=== PATIENT | male | born 1995 | race Two or more races ===

== ENCOUNTER 2024-10-30 13:35 | Outpatient (AMB) | payer MEDICAID, SELFPAY ==
[2024-10-23 10:22] VITALS: BP 124/81; PULSE 73; RESP 17; TEMP 36.5; O2SAT 99; BMI 27.6
--- NOTE | 2024-11-06 10:21 | ACNOTE_ITS ---
Vital Signs 10/23/24 10:22 Height 1.72 m Height Method Stated Weight 81.817 kg Weight Measurement Method Standing Scale BMI 27.6 BP 124/81 Blood Pressure Source Automatic Cuff Blood Pressure Location Left Upper Arm Position Sitting Respiration 17 Pulse 73 Pulse Source Monitor Temp 97.7 F Temp Source Oral Pulse Oximetry (%) 99 Oxygen Delivery Method Room Air Allergies/Meds Allergies & Medications Allergies No Known Allergies Allergy (Verified 11/06/24 10:23) Medication Reconciliation podofilox 0.5 % topical gel 1 applic topical BID 3 days #3.5 grams 03/18/24 [Rx Confirmed 11/06/24] allantoin 0.2 % topical cream 1 applic topical TID PRN dry skin #56.7 grams 07/17/24 [Rx Confirmed 11/06/24] bictegravir 50 mg-emtricitabine 200 mg-tenofovir alafenam 25 mg tablet (Biktarvy) 1 tab PO QDAY 30 days #30 tabs 10/30/24 [Rx Confirmed 11/06/24] emtricitabine 200 mg-tenofovir disoproxil fumarate 300 mg tablet (Truvada) 1 tab PO QDAY #30 tabs 10/30/24 [Rx Confirmed 11/06/24] MA Intake Visit Data Collection New Patient or Established: Established Patient (seen at [facility] within 3 years) Seen by Clinical Staff ONLY (RN/MA): No Pain Present Currently: No Pain scale:: 0 Pain Scale Used: Keane-Aguilar/Numerical Blow Down Helper Required: No PCP or OBGYN visit in last 3 months: Yes Hx Now: No Do You Feel Safe at Home: Yes Authorities Contacted: N/A Smoking Status Smoking Status: Never smoker Immunization / Flu Flu Vaccine in the Last 12 Months: No Flu Vaccine Exclusion Criteria: No Exclusion Criteria Past Medical History Past Medical History OTHER HISTORY: Positive Shingles and Human Immunodeficiency Virus (HIV) Social History SMOKING STATUS: Smoking status: Never smoker Patient Portal Questionaires Social History Tobacco History Smoking Status: Never smoker Domestic Abuse History Do You Feel Safe at Home: Yes Review of Systems Report any current symptoms Only answer those that you have currently: Past Medical History Past Medical History Have you ever been diagnosed with any of the following: Other Problems Shingles: Yes Human Immunodeficiency Virus (HIV): Yes History of Present Illness HPI Narrative Patient presented for follow-up for HIV therapy. Patient is feels well. His mobility has been stable and improving. Denies any fevers or weight changes. Continues to endorse safe sex practices. Objective/Exam Narrative Physical exam: Constitutional: AOx3, able to speak full sentences HEENT: NC/AT, PERRLA, oral mucosa moist, neck supple CVS: RRR, S1-S2 present, no murmurs RESP: CTAB GI: non distended, non tender to palpation, NBS MSK: full ROM, no peripheral edema, peripheral pulses present Skin: warm and dry, no rashes Neuro: geomagnetist II-XII grossly intact. Sensation grossly intact. Assessment & Plan Diagnosis / Problem List (1) HIV (human immunodeficiency virus infection): Status: Acute Qualifiers: HIV symptom status: asymptomatic, with no history of HIV-related illness Qualified Code(s): Z21 - Asymptomatic human immunodeficiency virus [HIV] infection status Assessment & Plan: HIV RNA (05/07/2024): <20 Plan: -continue Biktarvy -f/u 3 months with cd4 count, lipid panel Office Procedures [facility] Level of Care Nursing/Assessment Patient Status: Established Patient Nursing Assessment/Reassessment: Medication Reconciliation, Update PMH in EMR and Vital Signs Coordination of Care: Complex Care and Chronic Disease 1-5, Consent,records obtained, informed consent, Education Simp Pt/Fam, Lab and Imaging orders and Staff clarify orders Established Patient Charge Established Patient Point Assignment: 100 Established Patient Point Charge: EP Level 3 (80-115)
== END 2024-10-30 15:04 | disposition home or self-care (01) ==
LOC: HODAHC 13:35
PROVIDERS: PCP Student in an Organized Health Care Education/Training Program; Referring Provider Student in an Organized Health Care Education/Training Program; Supervising Provider Internal Medicine; Visit Provider Student in an Organized Health Care Education/Training Program
DX: Z21 Asymptomatic human immunodeficiency virus [HIV] infection status (principal); Z79.899 Other long term (current) drug therapy; G72.89 Other specified myopathies
CPT/HCPCS: 99213; G0463

== ENCOUNTER 2025-01-29 13:33 | Outpatient (AMB) | payer MEDICAID, SELFPAY ==
[2025-01-29 13:39] VITALS: BP 114/70; PULSE 56; RESP 18; TEMP 36.1; O2SAT 98; BMI 24.5
--- NOTE | 2025-01-29 13:39 | ACNOTE_ITS ---
Vital Signs 01/29/25 13:39 Height 1.72 m Height Method Stated Weight 72.802 kg Weight Measurement Method Standing Scale BMI 24.5 BP 114/70 Blood Pressure Source Automatic Cuff Blood Pressure Location Left Upper Arm Position Sitting Respiration 18 Pulse 56 L Pulse Source Monitor Temp 97.0 F Temp Source Temporal Artery Scan Pulse Oximetry (%) 98 Oxygen Delivery Method Room Air Allergies/Meds Allergies & Medications Allergies No Known Allergies Allergy (Verified 02/18/25 15:12) Medication Reconciliation podofilox 0.5 % topical gel 1 applic topical BID 3 days #3.5 grams 03/18/24 [Rx Confirmed 02/18/25] allantoin 0.2 % topical cream 1 applic topical TID PRN dry skin #56.7 grams 07/17/24 [Rx Confirmed 02/18/25] loperamide 2 mg capsule 2 mg PO Q6H PRN loose stool #20 caps 01/29/25 [Rx Confirmed 02/18/25] atorvastatin 20 mg tablet 20 mg PO QDAY #30 tabs 02/18/25 [Rx Confirmed 02/18/25] bictegravir 50 mg-emtricitabine 200 mg-tenofovir alafenam 25 mg tablet (Biktarvy) 1 tab PO QDAY 30 days #30 tabs 02/18/25 [Rx Confirmed 02/18/25] emtricitabine 200 mg-tenofovir disoproxil fumarate 300 mg tablet (Truvada) 1 tab PO QDAY #30 tabs 02/18/25 [Rx Confirmed 02/18/25] MA Intake Visit Data Collection New Patient or Established: Established Patient (seen at [facility] within 3 years) Seen by Clinical Staff ONLY (RN/MA): No Pain Present Currently: No Pain scale:: 0 Pain Scale Used: Keane-Aguilar/Numerical Etl Bi Developer Required: No PCP or OBGYN visit in last 3 months: No Hx Now: No Do You Feel Safe at Home: Yes Authorities Contacted: N/A Smoking Status Smoking Status: Never smoker Immunization / Flu Flu Vaccine in the Last 12 Months: No Flu Vaccine Exclusion Criteria: No Exclusion Criteria Past Medical History Past Medical History OTHER HISTORY: Positive Shingles and Human Immunodeficiency Virus (HIV) Social History SMOKING STATUS: Smoking status: Never smoker Patient Portal Questionaires Social History Tobacco History Smoking Status: Never smoker Domestic Abuse History Do You Feel Safe at Home: Yes Review of Systems Report any current symptoms Only answer those that you have currently: Past Medical History Past Medical History Have you ever been diagnosed with any of the following: Other Problems Shingles: Yes Human Immunodeficiency Virus (HIV): Yes History of Present Illness HPI Narrative Patient presented for follow-up for HIV therapy. Patient is feels well. His mobility has been stable and improving. Denies any fevers or weight changes. Continues to endorse safe sex practices. 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 Sensation grossly intact. Assessment & Plan Diagnosis / Problem List (1) HIV (human immunodeficiency virus infection): Status: Acute Qualifiers: HIV symptom status: asymptomatic, with no history of HIV-related illness Qualified Code(s): Z21 - Asymptomatic human immunodeficiency virus [HIV] infection status Assessment & Plan: HIV RNA (05/07/2024): <20 Plan: -continue Biktarvy -f/u with cd4 count, lipid panel Office Procedures [facility] Level of Care Nursing/Assessment Patient Status: Established Patient Nursing Assessment/Reassessment: Medication Reconciliation, Update PMH in EMR and Vital Signs Coordination of Care: Complex Care and Chronic Disease 1-5, Consent,records obtained, informed consent, Lab and Imaging orders and Staff clarify orders Established Patient Charge Established Patient Point Assignment: 85 Established Patient Point Charge: EP Level 3 (80-115)
== END 2025-01-29 13:59 | disposition home or self-care (01) ==
LOC: HODAHC 13:33
PROVIDERS: PCP Student in an Organized Health Care Education/Training Program; Referring Provider Student in an Organized Health Care Education/Training Program; Supervising Provider Internal Medicine; Visit Provider Student in an Organized Health Care Education/Training Program
DX: Z21 Asymptomatic human immunodeficiency virus [HIV] infection status (principal); Z79.899 Other long term (current) drug therapy
CPT/HCPCS: 99213; G0463

== ENCOUNTER 2025-02-18 13:44 | Outpatient (AMB) | payer MEDICAID, SELFPAY ==
[2025-02-18 14:36] VITALS: BP 117/67; PULSE 73; RESP 18; TEMP 36.6; O2SAT 96; BMI 25.0
--- NOTE | 2025-02-18 14:36 | PD.RESCLINIC ---
Vital Signs 02/18/25 14:36 Height 1.72 m Height Method Stated Weight 74.049 kg Weight Measurement Method Standing Scale BMI 25.0 BP 117/67 Blood Pressure Source Automatic Cuff Blood Pressure Location Right Upper Arm Position Sitting Respiration 18 Pulse 73 Pulse Source Monitor Temp 97.8 F Temp Source Temporal Artery Scan Pulse Oximetry (%) 96 Oxygen Delivery Method Room Air Allergies/Meds Allergies & Medications Allergies No Known Allergies Allergy (Verified 02/18/25 15:12) Medication Reconciliation podofilox 0.5 % topical gel 1 applic topical BID 3 days #3.5 grams 03/18/24 [Rx Confirmed 02/18/25] allantoin 0.2 % topical cream 1 applic topical TID PRN dry skin #56.7 grams 07/17/24 [Rx Confirmed 02/18/25] loperamide 2 mg capsule 2 mg PO Q6H PRN loose stool #20 caps 01/29/25 [Rx Confirmed 02/18/25] atorvastatin 20 mg tablet 20 mg PO QDAY #30 tabs 02/18/25 [Rx Confirmed 02/18/25] bictegravir 50 mg-emtricitabine 200 mg-tenofovir alafenam 25 mg tablet (Biktarvy) 1 tab PO QDAY 30 days #30 tabs 02/18/25 [Rx Confirmed 02/18/25] emtricitabine 200 mg-tenofovir disoproxil fumarate 300 mg tablet (Truvada) 1 tab PO QDAY #30 tabs 02/18/25 [Rx Confirmed 02/18/25] MA Intake Visit Data Collection New Patient or Established: Established Patient (seen at [facility] within 3 years) Seen by Clinical Staff ONLY (RN/MA): No Pain Present Currently: No Pain scale:: 0 Pain Scale Used: Keane-Aguilar/Numerical Machinery Mechanic Required: No PCP or OBGYN visit in last 3 months: No Hx Now: No Do You Feel Safe at Home: Yes Authorities Contacted: N/A Smoking Status Smoking Status: Never smoker Immunization / Flu Flu Vaccine in the Last 12 Months: No Flu Vaccine Exclusion Criteria: No Exclusion Criteria Past Medical History Past Medical History OTHER HISTORY: Positive Shingles and Human Immunodeficiency Virus (HIV) Social History SMOKING STATUS: Smoking status: Never smoker Patient Portal Questionaires Social History Tobacco History Smoking Status: Never smoker Domestic Abuse History Do You Feel Safe at Home: Yes Review of Systems Report any current symptoms Only answer those that you have currently: Past Medical History Past Medical History Have you ever been diagnosed with any of the following: Other Problems Shingles: Yes Human Immunodeficiency Virus (HIV): Yes History of Present Illness HPI Narrative Patient is here for labs f/u. Patient is feeling well, denies any acute symptoms. 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 Sensation grossly intact. Assessment & Plan Diagnosis / Problem List (1) HIV (human immunodeficiency virus infection): Status: Acute Qualifiers: HIV symptom status: asymptomatic, with no history of HIV-related illness Qualified Code(s): Z21 - Asymptomatic human immunodeficiency virus [HIV] infection status Assessment & Plan: HIV RNA (01/2025): <30 Plan: -continue Biktarvy -f/u with cd4 count, lipid panel in 3 months Office Procedures [facility] Level of Care Nursing/Assessment Patient Status: Established Patient Nursing Assessment/Reassessment: Medication Reconciliation, Update PMH in EMR and Vital Signs Coordination of Care: Complex Care and Chronic Disease 1-5, Consent,records obtained, informed consent, Education Simp Pt/Fam and Staff clarify orders Established Patient Charge Established Patient Point Assignment: 85 Established Patient Point Charge: EP Level 3 (80-115)
== END 2025-02-18 14:35 | disposition home or self-care (01) ==
LOC: HODAHC 13:44
PROVIDERS: Supervising Provider Internal Medicine; Visit Provider Student in an Organized Health Care Education/Training Program
DX: Z21 Asymptomatic human immunodeficiency virus [HIV] infection status (principal); Z79.899 Other long term (current) drug therapy; Z71.2 Person consulting for explanation of examination or test findings
CPT/HCPCS: 99213; G0463

== ENCOUNTER 2025-07-02 13:04 | Outpatient (AMB) | payer MEDICAID, SELFPAY ==
[2025-07-02 13:23] VITALS: BP 125/76; PULSE 63; RESP 18; TEMP 36.6; O2SAT 98; BMI 25.7
--- NOTE | 2025-07-02 13:23 | ACNOTE_ITS ---
<Statement entered by Henry Goodwin MD - 07/07/25 14:38> Attending note: I, Henry Goodwin MD, attest that I was physically present for the lee portions of the service and evaluated the patient with the resident and I reviewed and discussed the case with the resident and agree with the resident's findings and plans of care as documented above. Vital Signs 07/02/25 13:23 Height 1.72 m Height Method Stated Weight 76.317 kg Weight Measurement Method Standing Scale BMI 25.7 BP 125/76 Blood Pressure Source Automatic Cuff Blood Pressure Location Right Upper Arm Position Sitting Respiration 18 Pulse 63 Pulse Source Monitor Temp 97.9 F Temp Source Oral Pulse Oximetry (%) 98 Oxygen Delivery Method Room Air Allergies/Meds Allergies & Medications Allergies No Known Allergies Allergy (Verified 07/02/25 13:24) Medication Reconciliation podofilox 0.5 % topical gel 1 applic topical BID 3 days #3.5 grams 03/18/24 [Rx Confirmed 07/02/25] allantoin 0.2 % topical cream 1 applic topical TID PRN dry skin #56.7 grams 07/17/24 [Rx Confirmed 07/02/25] loperamide 2 mg capsule 2 mg PO Q6H PRN loose stool #20 caps 01/29/25 [Rx Confirmed 07/02/25] atorvastatin 20 mg tablet 20 mg PO QDAY #30 tabs 02/18/25 [Rx Confirmed 07/02/25] bictegravir 50 mg-emtricitabine 200 mg-tenofovir alafenam 25 mg tablet (Biktarvy) 1 tab PO QDAY 30 days #30 tabs 02/18/25 [Rx Confirmed 07/02/25] emtricitabine 200 mg-tenofovir disoproxil fumarate 300 mg tablet (Truvada) 1 tab PO QDAY #30 tabs 02/18/25 [Rx Confirmed 07/02/25] hydrocortisone 1 % topical ointment (Anti-Itch (hydrocortisone)) 1 applic topical BID PRN rash #28.35 grams 07/02/25 [Rx] MA Intake Visit Data Collection New Patient or Established: Established Patient (seen at [facility] within 3 years) Seen by Clinical Staff ONLY (RN/MA): No Pain Present Currently: No Pain scale:: 0 PCP or OBGYN visit in last 3 months: Yes Smoking Status Smoking Status: Never smoker Immunization / Flu Flu Vaccine in the Last 12 Months: No Flu Vaccine Exclusion Criteria: No Exclusion Criteria Past Medical History Past Medical History OTHER HISTORY: Positive Shingles and Human Immunodeficiency Virus (HIV) Social History SMOKING STATUS: Smoking status: Never smoker Patient Portal Questionaires Social History Tobacco History Smoking Status: Never smoker Review of Systems Report any current symptoms Only answer those that you have currently: Past Medical History Past Medical History Have you ever been diagnosed with any of the following: Other Problems Shingles: Yes Human Immunodeficiency Virus (HIV): Yes History of Present Illness HPI Narrative Patient is here for follow-up with labs, currently on HIV treatment with Biktarvy. Reported no acute symptoms. Used certified development architect Tad [id number] and Janiya [id number] for this encounter. Labs were reviewed, showed HIV RNA undetectable on PCR, CBC unremarkable, CD4 count absolute 466, lymphocytes 1800, normal electrolytes and renal panel, did notice slight elevation of alkaline phosphatase and T bilirubin, normal AST and AST, lipid panel shows elevated triglycerides and LDL. Patient did report a rash as he got in contact with poison charlette when working in the [employer] over a week ago, rash is present on right upper extremity, which is now receding, noticed slight itching. Patient was also concerned about keloid scars that he has on the left upper extremity and left shoulder. Patient was provided counseling regarding the benign nature of keloids. Also provided counseling to the patient as he was given multivitamin supplements for gym, advised the patient to keep at least 6-hour interval between multivitamin supplements and Biktarvy. Also advised the patient to focus more on fresh fruits and salads for nutritional supplementation and avoid [id number] creatinine or multivitamin supplements if possible as supplements can sometimes interfere with medication reabsorption. If taken simultaneously.. Patient demonstrated understanding. Will follow-up the patient with labs in 2 months. Review of Systems Review of Systems Narrative Review of Systems: General: Denies fevers or chills HEENT: Denies congestion or sore throat Heart: Denies chest pain or palpitations Lungs: Denies shortness of breath or cough Abdomen: Denies diarrhea, nausea, vomiting, constipation, bright red blood per rectum or melena Genitourinary: Denies frequency, urgency, dysuria, or hematuria Musculoskeletal: Denies joint pain, denies muscular pain Neurology: Denies any numbness, tingling Review of systems otherwise negative except what is mentioned above. Objective/Exam Narrative Physical exam: Constitutional: AOx3, able to speak full sentences HEENT: NC/AT, PERRLA, oral mucosa moist, neck supple CVS: RRR, S1-S2 present, no murmurs RESP: CTAB GI: non distended, non tender to palpation, NBS MSK: full ROM, no peripheral edema, peripheral pulses present Skin: warm and dry, urticarial rash right upper extremity. Noted keloids left upper extremity and tattoos left upper extremity along with left shoulder. 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 Sensation grossly intact. Assessment & Plan Diagnosis / Problem List (1) HIV (human immunodeficiency virus infection): Status: Acute Qualifiers: HIV symptom status: asymptomatic, with no history of HIV-related illness Qualified Code(s): Z21 - Asymptomatic human immunodeficiency virus [HIV] infection status Assessment & Plan: HIV RNA (01/2025): <30 Plan: -continue Biktarvy -f/u with cd4 count, lipid panel in 3 months (2) Rash: Status: Acute Assessment & Plan: After contact with poison charlette over 1 week ago, type IV hypersensitivity reaction. Rash is now receding, slight discomfort and itchiness. Plan: ? 1% Hydrocortisone topical cream to be used twice daily as needed (3) Hyperlipidemia: Status: Acute Assessment & Plan: LDL 113, triglyceride 203, HDL 35 Plan: ? Patient agreed to continue with dietary and lifestyle modifications. (4) Elevated liver enzymes: Status: Acute Assessment & Plan: Noted elevated T. billirubin 1.1 and alkaline Phosphatase 189. Normal ALT and AST. Patient reported no abdominal pain or tenderness, right upper quadrant physical exam unremarkable. Possible medication induced hyperbilirubinemia. Plan: ? Follow-up liver panel in 2 months. ? If patient has right upper quadrant pain, will consider further imaging. Plan Plan of care discussed with Dr. Buddy MD Quresh PGY3 Office Procedures [facility] Level of Care Nursing/Assessment Patient Status: Established Patient Nursing Assessment/Reassessment: Medication Reconciliation, Update PMH in EMR a nd Vital Signs Coordination of Care: Complex Care and Chronic Disease 1-5, Education Complex Pt/Fam and Staff clarify orders Established Patient Charge Established Patient Point Assignment: 85 Established Patient Point Charge: Level 3 (80-115)
== END 2025-07-02 13:57 | disposition home or self-care (01) ==
LOC: HODAHC 13:04
PROVIDERS: Supervising Provider Internal Medicine; Visit Provider Student in an Organized Health Care Education/Training Program
DX: L23.7 Allergic contact dermatitis due to plants, except food (principal); Z21 Asymptomatic human immunodeficiency virus [HIV] infection status; Z79.899 Other long term (current) drug therapy; E78.5 Hyperlipidemia, unspecified; R74.8 Abnormal levels of other serum enzymes
CPT/HCPCS: 99213; G0463

== ENCOUNTER 2025-07-05 12:19 | Emergency (ER) | payer MEDICAID, SELFPAY ==
[2025-07-05 12:20] VITALS: BMI 24.0
[2025-07-05 12:56] VITALS: BP 121/69; PULSE 66; RESP 18; TEMP 37.6; O2SAT 98
[2025-07-05] MEDS: DiphenhydrAMINE ELIX 25 MG/10 ML UDC PO (13:11)
[2025-07-05] MEDS: DEXAMETHASONE SOD PHOS INJ 10 MG/ML VIAL PO (13:11)
[2025-07-05] MEDS: FAMOTIDINE 20 MG TABLET PO (13:12)
--- NOTE | 2025-07-05 14:18 | PD.EDSKIN ---
ED Skin Abcess FB-RME/HPI General Chief complaint: Skin/Abscess/Foreign Body Stated complaint: RASH TO MEÑO ARMS Time Seen by Provider: 07/05/25 12:31 Source: patient Arrival date/time: 07/05/25 12:19 Mode of arrival: ambulatory Limitations: no limitations Related Data Previous Rx's ?Medication ?Instructions ?Recorded podofilox 0.5 % topical gel 1 applic topical BID 3 days #3.5 03/18/24 grams allantoin 0.2 % topical cream 1 applic topical TID PRN dry skin 07/17/24 #56.7 grams loperamide 2 mg capsule 2 mg PO Q6H PRN loose stool #20 01/29/25 caps atorvastatin 20 mg tablet 20 mg PO QDAY #30 tabs 02/18/25 bictegravir 50 mg-emtricitabine 1 tab PO QDAY 30 days #30 tabs 02/18/25 200 mg-tenofovir alafenam 25 mg tablet (Biktarvy) emtricitabine 200 mg-tenofovir 1 tab PO QDAY #30 tabs 02/18/25 disoproxil fumarate 300 mg tablet (Truvada) hydrocortisone 1 % topical 1 applic topical BID PRN rash 07/02/25 ointment (Anti-Itch #28.35 grams (hydrocortisone)) diphenhydramine HCl 25 mg capsule 25 mg PO TID PRN allergic reaction 07/05/25 #14 caps prednisone 20 mg tablet 40 mg (2 x 20 mg) PO QDAY 4 days 07/05/25 #8 tabs Allergies Allergy/AdvReac Type Severity Reaction Status Date / Time No Known Allergies Allergy Verified 07/05/25 12:22 Review of Systems Review of Systems Systems Reviewed: All systems reviewed, normal except as documented Constitutional Constitutional: Reports system reviewed and no additional complaints, except as documented, Denies fatigue, Denies fever(s), Denies headache(s) and Denies weakness Eyes Eyes: Reports system reviewed and no additional complaints, except as documented, Denies blurry vision, Denies change in vision and Denies itchy eyes ENT Ears, Nose, Mouth, and Throat: Reports system reviewed and no additional complaints, except as documented, Denies otalgia, Denies headache(s), Denies lip swelling, Denies nasal congestion, Denies throat swelling, Denies tongue swelling and Denies vertigo Cardiovascular Cardiovascular: Reports system reviewed and no additional complaints, except as documented, Denies chest pain, Denies dyspnea and Denies dyspnea on exertion Respiratory Respiratory: Reports system reviewed and no additional complaints, except as documented, Denies chest congestion, Denies cough, Denies dyspnea, Denies dyspnea on exertion and Denies wheezing Gastrointestinal Gastrointestinal: Reports system reviewed and no additional complaints, except as documented, Denies abdominal pain, Denies cramping, Denies nausea and Denies vomiting Genitourinary Genitourinary: Reports system reviewed and no additional complaints, except as documented, Denies dysuria and Denies hematuria Musculoskeletal Musculoskeletal: Reports system reviewed and no additional complaints, except as documented and Denies back pain Integumentary/Breasts Skin/Breast: Reports system reviewed and no additional complaints, except as documented and Denies wounds Neurologic Neurologic: Reports system reviewed and no additional complaints, except as documented, Denies confusion, Denies headache(s), Denies lack of coordination, Denies vertigo and Denies weakness Psychiatric Psychiatric: Reports system reviewed and no additional complaints, except as documented, Denies anxiety, Denies confusion, Denies depression, Denies paranoia, Denies suicidal ideation and Denies tactile hallucinations Endocrine Endocrine: Reports system reviewed and no additional complaints, except as documented and Denies fatigue Hematologic/Lymphatic Hematologic/Lymphatic: Reports system reviewed and no additional complaints, except as documented and Denies lymphadenopathy Allergic/Immunologic Allergic/Immunologic: Reports system reviewed and no additional complaints, except as documented, Denies GI upset with certain foods, Denies itchy eyes, Denies lip swelling, Denies seasonal rhinorrhea, Denies throat swelling, Denies tongue swelling, Reports urticaria and Denies wheezing ED Exam General Limitations: Present no limitations General appearance: Present alert and in no apparent distress Head Head exam: Present atraumatic Eye Eye exam: Present normal appearance, PERRL and EOMI ENT ENT exam: Present normal exam, normal oropharynx and mucous membranes moist Neck Neck exam: Present normal inspection, full ROM and trachea midline Chest Chest inspection: Present normal inspection and symmetric chest wall rise Respiratory Respiratory exam: Present normal lung sounds bilaterally Cardiovascular Cardiovascular exam: Present regular rate, normal rhythm and normal heart sounds Abdominal Exam Abdominal exam: Present soft and normal bowel sounds Extremities Exam Extremities exam: Present normal inspection and full ROM Back Exam Back exam: Present normal inspection and full ROM Neurological Exam Neurological exam: Present alert, oriented X3 and CN II-XII intact Psychiatric Psychiatric exam: Present normal affect and normal mood Skin Skin exam: Present warm, dry, intact and normal color Expanded Skin Exam Type of lesion: Present rash Description: Present tenderness and erythematous Course Quality Measures none Orders Category Date Time Status Dexamethasone Inj [Decadron Inj] Med 07/05/25 12:58 Discontinued 10 mg PO X1 ONE DiphenhydrAMINE [Benadryl] Med 07/05/25 12:58 Discontinued 25 mg PO X1 ONE Famotidine [Pepcid] Med 07/05/25 12:58 Discontinued 20 mg PO X1 ONE Vital Signs Vital signs: Vital Signs Temperature 99.7 F 07/05/25 12:56 Pulse Rate 66 07/05/25 12:56 Respiratory Rate 18 07/05/25 12:56 Blood Pressure 121/69 07/05/25 12:56 Pulse Oximetry (%) 98 07/05/25 12:56 Oxygen Delivery Method Room Air 07/05/25 12:56 Skin / Abscess / Foreign Body MDM Narrative MDM Narrative:: 29-year-old male with a history of HIV presents to the emergency room with a chief complaint of a rash to the bilateral arms x 5 days. Patient is hemodynamically stable and in no apparent distress Physical examination shows a bilateral rash to the arms. It is just hives. The patient denies any respiratory distress there is no tongue swelling lip swelling. Lung sounds are clear bilaterally Antihistamines were given with significant improvement to the patient's symptoms Patient was discharged and educated to follow-up with primary care provider in the next 24 to 48 hours and return to the emergency room for any evidence of worsening signs or symptoms Patient data External records reviewed:: [facility] previous records Clinical information provided by:: patient Social determinants that could affect healthcare access:: none Patient has the following chronic illnesses:: No chronic illness How is presenting disease/condition affected by chronic disease/condition?: no chronic disease Evaluation data The following diagnostics were reviewed and interpreted by me:: lab results and radiology exam(s) Lab and/or radiology exams considered but not ordered:: Labs and radiology exams considered and ordered Interpretation Summary: N/A Medications / Prescriptions Medications or Prescriptions considered but not ordered:: Medication given Medication administrations:: Medication Administration History Discontinued Medications Dexamethasone Sodium Phosphate (Dexamethasone Sod Phos Inj 10 Mg/Ml Vial) 10 mg PO X1 ONE Stop: 07/05/25 12:59 Last Admin: 07/05/25 13:11 Dose: 10 mg Documented By: DILAN Diphenhydramine HCl (Diphenhydramine Elix 25 Mg/10 Ml Udc) 25 mg PO X1 ONE Stop: 07/05/25 12:59 Last Admin: 07/05/25 13:11 Dose: 25 mg Documented By: DILAN Famotidine (Famotidine 20 Mg Tablet) 20 mg PO X1 ONE Stop: 07/05/25 12:59 Last Admin: 07/05/25 13:12 Dose: 20 mg Documented By: DILAN Medication given Consultations Consultation(s) initiated? (list below): No Diagnosis Skin/Abscess Differential Diagnosis: urticaria, cellulitis, contact dermatitis and other (Allergic dermatitis due to poison charlette) Most likely diagnosis given after review of the tests above:: Allergic dermatitis due to poison charlette Admission Indicated Admission indicated?: not indicated Admission Request Was there a request for admission?: No Disposition Plan Disposition Plan: Discharge Discharge Attestation Discharge Attestation: The patient and all family members were given an opportunity to ask questions and understood the discharge instructions. Discharge instructions specifically effects, indications for sooner follow up or return to the emergency department, and the expected course of current diagnosis. Patient condition: Stable Discharge Plan Plan Patient Disposition: HOME (Self Care) Discharge Disposition comment: Stable Prescriptions/Referrals Prescriptions/Med Rec: New prednisone 20 mg tablet 40 mg PO QDAY 4 Days Qty: 8 0RF diphenhydramine HCl 25 mg capsule 25 mg PO TID PRN (Reason: allergic reaction) Qty: 14 0RF No Action hydrocortisone [Anti-Itch (HC)] 1 % ointment 1 applic topical BID PRN (Reason: rash) Qty: 28.35 1RF podofilox 0.5 % gel 1 applic topical BID 3 Days Qty: 3.5 2RF allantoin 0.2 % cream 1 applic topical TID PRN (Reason: dry skin) Qty: 56.7 1RF loperamide 2 mg capsule 2 mg PO Q6H PRN (Reason: loose stool) Qty: 20 0RF atorvastatin 20 mg tablet 20 mg PO QDAY Qty: 30 0RF emtricitabine-tenofovir (TDF) [Truvada] 200-300 mg tablet 1 tab PO QDAY Qty: 30 0RF Biktarvy 50-200-25 mg tablet 1 tab PO QDAY 30 Days Qty: 30 5RF Problem List Clinical Impression: Allergic dermatitis due to poison charlette Patient/Caregiver Discharge Instructions Education Materials: ED Contact Dermatitis Additional Instructions: Por favor, consulte con yanez m?dico de cabecera en las pr?ximas 24 a 48 horas. El medicamento fue enviado a yanez farmacia, por favor rec?jalo y t?cunningham naomi se indica. Si hay alguna evidencia de empeoramiento de los signos o s?ntomas, regrese a la lindsay de emergencias inmediatamente. Print Language: Croatian Stand Alone Forms: Suzette Award Info., Work/School Release, Patient Portal Info Letter
== END 2025-07-05 14:43 | disposition home or self-care (01) ==
LOC: SERX 14:34
PROVIDERS: Emergency Provider Emergency Medicine; PCP Student in an Organized Health Care Education/Training Program
DX: L23.7 Allergic contact dermatitis due to plants, except food (principal); Z21 Asymptomatic human immunodeficiency virus [HIV] infection status
CPT/HCPCS: 99283; J1100; A9270

== ENCOUNTER 2025-09-03 12:55 | Outpatient (AMB) | payer MEDICAID, SELFPAY ==
[2025-09-03 13:10] VITALS: BP 121/76; PULSE 71; RESP 16; TEMP 36.4; O2SAT 96; BMI 27.4
--- NOTE | 2025-09-03 13:10 | PD.RESCLINIC ---
Vital Signs 09/03/25 13:10 Height 1.72 m Height Method Stated Weight 81.306 kg Weight Measurement Method Standing Scale BMI 27.4 BP 121/76 Blood Pressure Source Automatic Cuff Blood Pressure Location Right Upper Arm Position Sitting Respiration 16 Pulse 71 Pulse Source Monitor Temp 97.6 F Temp Source Temporal Artery Scan Pulse Oximetry (%) 96 Oxygen Delivery Method Room Air Allergies/Meds Allergies & Medications Allergies No Known Allergies Allergy (Verified 09/03/25 13:11) Medication Reconciliation podofilox 0.5 % topical gel 1 applic topical BID 3 days #3.5 grams 03/18/24 [Rx Confirmed 09/03/25] allantoin 0.2 % topical cream 1 applic topical TID PRN dry skin #56.7 grams 07/17/24 [Rx Confirmed 09/03/25] loperamide 2 mg capsule 2 mg PO Q6H PRN loose stool #20 caps 01/29/25 [Rx Confirmed 09/03/25] atorvastatin 20 mg tablet 20 mg PO QDAY #30 tabs 02/18/25 [Rx Confirmed 09/03/25] emtricitabine 200 mg-tenofovir disoproxil fumarate 300 mg tablet (Truvada) 1 tab PO QDAY #30 tabs 02/18/25 [Rx Confirmed 09/03/25] hydrocortisone 1 % topical ointment (Anti-Itch (hydrocortisone)) 1 applic topical BID PRN rash #28.35 grams 07/02/25 [Rx Confirmed 09/03/25] diphenhydramine HCl 25 mg capsule 25 mg PO TID PRN allergic reaction #14 caps 07/05/25 [Rx Confirmed 09/03/25] bictegravir 50 mg-emtricitabine 200 mg-tenofovir alafenam 25 mg tablet (Biktarvy) 1 tab PO QDAY 30 days #30 tabs 08/25/25 [Rx Confirmed 09/03/25] MA Intake Visit Data Collection New Patient or Established: Established Patient (seen at [facility] within 3 years) Seen by Clinical Staff ONLY (RN/MA): Yes Pain Present Currently: No Pain scale:: 0 Pain Scale Used: Nina/Numerical Plate Keeper Required: Yes PCP or OBGYN visit in last 3 months: Yes Do You Feel Safe at Home: Yes Authorities Contacted: N/A Smoking Status Smoking Status: Never smoker Immunization / Flu Flu Vaccine in the Last 12 Months: No Flu Vaccine Exclusion Criteria: No Exclusion Criteria Past Medical History Past Medical History OTHER HISTORY: Positive Shingles and Human Immunodeficiency Virus (HIV) Social History SMOKING STATUS: Smoking status: Never smoker Patient Portal Questionaires PHQ-9 PHQ-2 Over the last 2 weeks, how often have you been bothered by any of the following problems? 1. Little interest or pleasure in doing things: not at all 2. Feeling down, depressed, or hopeless: not at all Total score: 0 PHQ-9 3. Trouble falling or staying asleep, or sleeping too much: Not at all 4. Feeling tired or having little energy: Not at all 5. Poor appetite or overeating: Not at all 6. Feeling bad about yourself - or that you are a failure or have let yourself or your family down: Not at all 7. Trouble concentrating on things, such as reading the newspaper or watching television: Not at all 8. Moving or speaking so slowly that other people could have noticed? - Or the opposite - being so fidgety or restless that you have been moving around a lot more than usual: not at all 9. Thoughts that you would be better off or of hurting yourself in some way: Not at all Total score: 0 Source: Developed by Drs. Jermaine Clark, Annette Teague, Griffin Brice and colleagues, with an educational renetta from [employer]. Social History Tobacco History Smoking Status: Never smoker Domestic Abuse History Do You Feel Safe at Home: Yes Review of Systems Report any current symptoms Only answer those that you have currently: Past Medical History Past Medical History Have you ever been diagnosed with any of the following: Other Problems Shingles: Yes Human Immunodeficiency Virus (HIV): Yes History of Present Illness HPI Narrative Patient is here for follow-up with labs, currently on HIV treatment with Biktarvy. Reported no acute symptoms. Used certified concrete block molder Tad [id number] and Janiya [id number] for this encounter. Labs were reviewed, showed HIV RNA undetectable on PCR, CBC unremarkable, CD4 count absolute 466, lymphocytes 1800, normal electrolytes and renal panel, did notice slight elevation of alkaline phosphatase and T bilirubin, normal AST and AST, lipid panel shows elevated triglycerides and LDL. Patient did report a rash as he got in contact with poison charlette when working in the [employer] over a week ago, rash is present on right upper extremity, which is now receding, noticed slight itching. Patient was also concerned about keloid scars that he has on the left upper extremity and left shoulder. Patient was provided counseling regarding the benign nature of keloids. Also provided counseling to the patient as he was given multivitamin supplements for gym, advised the patient to keep at least 6-hour interval between multivitamin supplements and Biktarvy. Also advised the patient to focus more on fresh fruits and salads for nutritional supplementation and avoid [id number] creatinine or multivitamin supplements if possible as supplements can sometimes interfere with medication reabsorption. If taken simultaneously.. Patient demonstrated understanding. 09/03/2025: The patient is here for follow-up on his HIV and labs. His labs were discussed with him. He denied any headache, nausea or vomiting, fever or chills, SOB, chest pain, any changes in bowel or bladder habit, any rashes in the body. Will follow-up the patient with labs in 3 months. Review of Systems Review of Systems Systems Reviewed: All systems reviewed, normal except as documented Objective/Exam Narrative Physical exam: Constitutional: AOx3, able to speak full sentences HEENT: NC/AT, PERRLA, oral mucosa moist, neck supple CVS: RRR, S1-S2 present, no murmurs RESP: CTAB GI: non distended, non tender to palpation, NBS MSK: full ROM, no peripheral edema, peripheral pulses present Skin: warm and dry, urticarial rash right upper extremity. Noted keloids left upper extremity and tattoos left upper extremity along with left shoulder. Neuro: rn utilization management um II-XII grossly intact. Sensation grossly intact. Assessment & Plan Diagnosis / Problem List (1) HIV (human immunodeficiency virus infection): Status: Acute Qualifiers: HIV symptom status: asymptomatic, with no history of HIV-related illness Qualified Code(s): Z21 - Asymptomatic human immunodeficiency virus [HIV] infection status Assessment & Plan: HIV RNA (04/2025): Less than 30 Plan: -continue Biktarvy -f/u with cd4 count, lipid panel in 3 months - Referred to infectious disease Dr Botello (2) Hyperlipidemia: Status: Acute Assessment & Plan: LDL 113, triglyceride 203, HDL 35 Plan: ? Patient agreed to continue with dietary and lifestyle modifications. (3) Elevated liver enzymes: Status: Acute Assessment & Plan: Mild elevation in ALP. Patient reported no abdominal pain or tenderness, right upper quadrant physical exam unremarkable. Possible medication induced hyperbilirubinemia. Plan: ? Follow-up liver panel in 3 months. ? If patient has right upper quadrant pain, will consider further imaging. Plan The patient's management plan was discussed with my attending physician MD Asad Islas MD, PGY3 Office Procedures [facility] Level of Care Nursing/Assessment Patient Status: Established Patient Nursing Assessment/Reassessment: Medication Reconciliation, Update PMH in EMR and Vital Signs Coordination of Care: Complex Care and Chronic Disease 1-5, Complex Care/Chronic Disease 5 or more, Consent,records obtained, informed consent, Lab and Imaging orders, Results/Orders obtained and Staff clarify orders Established Patient Charge Established Patient Point Assignment: 125 Established Patient Point Charge: EP Level 4 (120-155)
== END 2025-09-03 14:46 | disposition home or self-care (01) ==
LOC: HODAHC 12:55
PROVIDERS: Supervising Provider Internal Medicine; Visit Provider Student in an Organized Health Care Education/Training Program
DX: Z21 Asymptomatic human immunodeficiency virus [HIV] infection status (principal); Z79.899 Other long term (current) drug therapy; E78.5 Hyperlipidemia, unspecified; R74.8 Abnormal levels of other serum enzymes
CPT/HCPCS: 99214; G0463